=== PATIENT | male | born 1955 | race Caucasian/White ===

== ENCOUNTER 2018-12-05 09:08 | Day surgery (SDC) | payer OTHER ==
[~2018-12-05] VITALS: Ht 185.4 cm; Wt 90.5 kg
[2018-12-05] MEDS ORDERED: AMLODIPINE BESYLATE (10:46)
[2018-12-05] MEDS ORDERED: BENAZEPRIL (10:46)
[2018-12-05 10:49] VITALS: Ht 185.4 cm; Wt 90.5 kg
[2018-12-05 11:05] VITALS: BP 163/92; PULSE 68; RESP 18
[2018-12-05] MEDS ORDERED: FENTAnyl 50 MCG/ML VIAL ONE (11:49)
[2018-12-05] MEDS ORDERED: MIDAZOLAM 1 MG/ML 2 ML INJ ONE ×2 (11:50)
== END 2018-12-05 15:09 | disposition home or self-care (01) ==
LOC: GIL 09:08
PROVIDERS: ATTEND Internal Medicine Gastroenterology
DX: Z12.11 Encounter for screening for malignant neoplasm of colon (principal); K64.8 Other hemorrhoids; D12.3 Benign neoplasm of transverse colon; K57.30 Diverticulosis of large intestine without perforation or abscess without bleeding; I10 Essential (primary) hypertension
CPT/HCPCS: 45380; 88305; J2250; J3010